=== PATIENT | female | born 1965 | race African-American/Black ===

== ENCOUNTER 2018-05-22 10:32 | Outpatient (CLI) | payer MEDICARE ==
[~2018-05-22] VITALS: Ht 160 cm; Wt 56.7 kg
[2018-05-22] MEDS ORDERED: LISI-334 PO (10:52)
[2018-05-22] MEDS ORDERED: AMLO10TA6 PO (10:52)
[2018-05-22] MEDS ORDERED: CARV25TA2 PO (10:52)
[2018-05-22 10:54] LABS: BASO % 0 % (0-3); EOS # 0.2 x10^3/uL (0.0-0.7); EOS % 3 % (0-3); HEMATOCRIT 32.3 % (36.0-47.0); HEMOGLOBIN 10.7 g/dL (12.0-15.5); LYMPH # 1.6 x10^3/uL (1.0-4.8); LYMPH % 23 % (24-48); MEAN CORPUSCULAR HEMOGLOBIN 30 pg (25-35); MEAN CORPUSCULAR HGB CONC 33 g/dL (31-37); MEAN CORPUSCULAR VOLUME 91 fL (79-100); MONO # 0.6 x10^3/uL (0.0-1.1); MONO % 9 % (0-9); NEUT # 4.4 x10^3uL (1.8-7.7); NEUT % 64 % (31-73); PLATELET COUNT 349 x10^3/uL (140-400); RED BLOOD COUNT 3.57 x10^6/uL (3.50-5.40); RED CELL DISTRIBUTION WIDTH 16.9 % (11.5-14.5); WHITE BLOOD COUNT 6.8 x10^3/uL (4.0-11.0)
[2018-05-22] MEDS ORDERED: SEVE800T9 PO (10:56)
[2018-05-22] MEDS ORDERED: CHOL10003 PO (10:56)
[2018-05-22] MEDS ORDERED: HYDR-2868 PO (10:56)
[2018-05-22] MEDS ORDERED: ATOR40TA59 PO (11:00)
[2018-05-22 11:07] LABS: PROTHROMBIN TIME PATIENT 13.8 SEC (11.7-14.0)
[2018-05-22 11:08] VITALS: BP 142/80
[2018-05-22] MEDS ORDERED: ALTEPLASE 2 MG VIAL INT CAT ONE (11:15)
[2018-05-22] MEDS ORDERED: fentaNYL PF VIAL 100 MCG/2 ML VIAL ONE ×2 (11:53→13:28)
[2018-05-22] MEDS ORDERED: MIDAZOLAM HCL/PF 2 MG/2 ML VIAL. ONE ×2 (11:53→13:28)
[2018-05-22] MEDS ORDERED: HEPARIN for IV BOLUS 10,000 UNIT/10 ML VIAL. ONE (11:54)
[2018-05-22] MEDS ORDERED: IODIXANOL 320 MG/ML 100 ML VIAL. ONE (11:54)
[2018-05-22] MEDS ORDERED: LIDOCAINE WITH 8.4% SOD BICARB 3 ML DISP.SYRIN. ONE (11:55)
[2018-05-22] MEDS ORDERED: IODIXANOL 320 MG/ML 50ML VIAL. ONE ×2 (11:55→14:15)
[2018-05-22] MEDS ORDERED: fentaNYL PF VIAL 100 MCG/2 ML VIAL IV ONE (13:00)
[2018-05-22] MEDS ORDERED: HEPARIN for IV BOLUS 10,000 UNIT/10 ML VIAL. IV ONE (13:00)
[2018-05-22] MEDS ORDERED: IODIXANOL 320 MG/ML 100 ML VIAL. IART ONE (13:00)
[2018-05-22] MEDS ORDERED: MIDAZOLAM HCL/PF 2 MG/2 ML VIAL. IV ONE (13:00)
[2018-05-22] MEDS ORDERED: LIDOCAINE WITH 8.4% SOD BICARB 3 ML DISP.SYRIN. IJ ONE (13:00)
[2018-05-22] MEDS ORDERED: CONTRAST GIVEN. MC PRN (13:15)
[2018-05-22 14:54] VITALS: BP 133/78
[2018-05-22 15:02] VITALS: BP 118/73
[2018-05-22 15:15] VITALS: BP 127/72
[2018-05-22] MEDS ORDERED: CLOPIDOGREL BISULFATE 75 MG TABLET PO ONE (15:15)
[2018-05-22] MEDS ORDERED: CLOPIDOGREL BISULFATE 75 MG TABLET ONE (15:23)
[2018-05-22 15:30] VITALS: BP 147/78
[2018-05-22 15:45] VITALS: BP 131/74
--- NOTE | 2018-05-25 11:47 | RAD ---
05/22/2018 1. Right upper extremity AV fistulogram 2. Right upper extremity AV graft pharmacomechanical thrombolysis 3. Placement of self expanding stent, right upper extremity AV graft secondary to bleeding, possible prior puncture site 4. Placement of extending stent secondary to anastomotic and proximal outflow vein stenosis Discussion: The risks and benefits of the procedure were discussed the patient. Informed consent was obtained. A timeout procedure was performed. Right upper extremity was prepped and draped using sterile barrier technique. Ultrasound evaluation confirms complete thrombosis of a recently placed right upper extremity AV graft. Graft was accessed directed towards venous outflow using direct ultrasound guidance and micropuncture technique. Reference ultrasound images were saved. Central venogram was obtained demonstrating patency of the major central veins from the axillary vein centrally. What appears to be high-grade stenosis at the venous anastomosis is seen. Graft was accessed directed towards the arterial limb in an identical fashion. 2 lysis catheters were placed and 6 mg of TPA was administered throughout the graft. The patient was heparinized. Following a 20 minute intubation balloon maceration of the clot was performed. Angioplasty of the outflow vein was performed with a 6 mm balloon. The arterial plug was with a 5 mm balloon. This reestablished flow through the graft however flow remains sluggish. Also noted was ivonne extravasation of contrast in the arterial limb of the graft which appeared to be the result of a through and through puncture site. This could not be stopped despite direct manual pressure and inflation of the balloon for several minutes proximal to the bleeding site. The bleeding site was then covered 8 mm Viabahn self-expanding stent. Bleeding resolved. Balloon maceration was performed throughout the entirety of the graft. A persistent outflow stenosis is seen. Given relatively recent anastomosis, gentle angioplasty was again performed which improved but not resolved outflow vein stenosis. A 10 mm self expanding stent was placed. Following this in-line flow seen through the graft. No significant residual stenosis was identified. She's were removed over pursestring sutures. Sterile dressings were applied. The procedures performed under conscious sedation including continuous cardiopulmonary monitoring via a dedicated sedation nurse. [id number] sedation time 2 hours Fluoroscopy time: 26.5 Minutes Dose area product:: 29 Gycm2 Impression: 1. High-grade venous anastomotic and moderate outflow vein stenosis treated with balloon angioplasty and placement of a self expanding bare metal stent 2. Successful pharmacomechanical thrombolysis 3. Following lysis there was active bleeding in the arterial limb of the graft which appears to be the result of prior through and through puncture. This was ultimately treated by placement of a covered stent 4. At the end of the procedure, adequate in-line flow through the graft appears to be present.
[2018-05-25] MEDS ORDERED: CLOP75TA PO (17:36)
== END 2018-05-22 16:09 | disposition home or self-care (01) ==
LOC: INTRAD 10:32
PROVIDERS: ATTEND Internal Medicine Nephrology
DX: T82.868A Thrombosis due to vascular prosthetic devices, implants and grafts, initial encounter (principal); Z88.0 Allergy status to penicillin; I12.0 Hypertensive chronic kidney disease with stage 5 chronic kidney disease or end stage renal disease; N18.6 End stage renal disease; Z99.2 Dependence on renal dialysis; F17.210 Nicotine dependence, cigarettes, uncomplicated; Z98.890 Other specified postprocedural states; Y83.2 Surgical operation with anastomosis, bypass or graft as the cause of abnormal reaction of the patient, or of later complication, without mention of misadventure at the time of the procedure; Y92.89 Other specified places as the place of occurrence of the external cause; Z79.899 Other long term (current) drug therapy
CPT/HCPCS: 36906; 99152; 99153; C1725; C1757; C1769; C1892; C1894; J1644; J2250; J2997; J3010; 36415; 76937; 85025; 85610; 85730

== ENCOUNTER 2021-08-17 14:07 | Emergency (ER) | payer MEDICARE ==
[~2021-08-17] VITALS: Ht 160 cm; Wt 44.6 kg
[~2021-08-17 14:07] MED LIST: AMLO-187 PO; AMLO10TA4 PO; ATOR40TA59 PO; CARV12.5 PO; CARV25TA2 PO; CHOL10003 PO; CLOP75TA PO; HYDR-2868 PO; LISI20TA18 PO; OXYC1TAB15 PO; SEVE800T9 PO
[2021-08-17] MEDS ORDERED: ACETAMINOPHEN 500 MG TABLET PO ONE (15:30)
--- NOTE | 2021-08-17 15:45 | PHYS DOC ---
Past Medical History Past Medical History: Hypertension Additional Past Medical Histor: CHRONIC KIDNEY DISEASE Past Surgical History: Other Additional Past Surgical Histo: R ARM FISTULA Smoking Status: Current Every Day Smoker Alcohol Use: Occasionally Drug Use: None Adult General Chief Complaint Chief Complaint: DIALYSIS PROBLEM HPI HPI The patient is a 56-year-old female with a history of end-stage renal disease on hemodialysis MWF presents for evaluation of a dialysis fistula problem. She completed dialysis and the staff at the dialysis center deaccessed her fistula and she then had bleeding from the site which they were unable to stop. EMS were called. Bleeding was controlled with direct pressure without any difficulty and upon arrival to the emergency department patient is not bleeding from the site when her dressing is taken down and the site is inspected. She denies complaints. Review of Systems Review of Systems A 12 point review of systems was completed and was negative except where noted in HPI above. Current Medications Current Medications Current Medications Medications (Trade) Dose Ordered Sig/Lesli Start Time Stop Time Status Last Admin Dose Admin Acetaminophen (Tylenol) 1,000 mg 1X ONCE 08/17/21 15:30 08/17/21 15:31 DC 08/17/21 15:48 1,000 MG Allergies Allergies Allergies Coded Allergies Type Severity Reaction Last Updated Verified Penicillins Allergy Intermediate 05/25/18 Yes Physical Exam Physical Exam 56-year-old female appearing chronically ill but nontoxic and in no acute distress. Head is normocephalic and atraumatic. Neck is supple and nontender. Oropharynx is moist. Lungs are clear to auscultation at all stations. There is a normal S1 and S2 without rubs or gallops and capillary refill is appropriate, less than 2 seconds globally. Abdomen is soft, nontender and nondistended. Skin is warm and dry without cyanosis, clubbing or edema. Psychiatrically, the patient demonstrates appropriate mood and affect and is alert. Evaluation of the extremities reveals BUEs and BLEs neurovascularly intact distally with sensation intact light touch in all nerve distributions, radial, DP and PT pulses 2+ and equal bilaterally, capillary refill less than 2 seconds, hands and feet warm and well-perfused. Chronic contractures noted to right arm and right leg. Dialysis fistula site present to the left upper extremity with a palpable thrill and no active bleeding seen. Current Patient Data Vital Signs Vital Signs Date Time Temp Pulse Resp B/P (MAP) Pulse Ox O2 Delivery O2 Flow Rate FiO2 08/17/21 15:44 66 20 158/74 (102) 96 Room Air 08/17/21 14:10 97.6 97.6 EKG EKG [] Radiology/Procedures Radiology/Procedures [] Course & Med Decision Making Course & Med Decision Making 56-year-old female here for persistent bleeding from her dialysis fistula site after it was deaccessed at the completion of dialysis. Bleeding resolved with direct pressure either before or during transport. 1615: Patient has been observed for multiple hours here in the emergency department without any recurrence of her presenting bleeding. Received some Tylenol due to a headache which she states is typical for her after her dialysis sessions. Headache resolved. She feels back to baseline and ready to go home. Will discharge home. Patient is to follow-up with primary care and with her parts sales counterperson as scheduled. She understands that if she feels worse instead of better, has recurrent symptoms or any other new symptoms of concern that she should return to the emergency department immediately for reevaluation. All questions are answered. Dragon Disclaimer Dragon Disclaimer This electronic medical record was generated, in whole or in part, using a voice recognition dictation system. Departure Departure Impression: Primary Impression: Hemorrhage of surgically-created arteriovenous fistula Disposition: 01 HOME / SELF CARE / HOMELESS Condition: IMPROVED Patient Instructions: Arteriovenous (AV) Access for Hemodialysis Additional Instructions: Follow-up very closely with your primary care doctor in the office in the next 1 to 2 days for a reevaluation of your symptoms and a discussion of next best steps in care. Follow-up very closely with your parts sales counterperson as scheduled as well and do not miss any dialysis sessions. Return to the emergency department right away for worsening symptoms of any kind or with any other new symptoms of concern. Problem Qualifiers Primary Impression: Hemorrhage of surgically-created arteriovenous fistula Encounter type: initial encounter Qualified Codes: T82.838A - Hemorrhage due to vascular prosthetic devices, implants and grafts, initial encounter DELMA RASHEED MD Aug 17, 2021 15:45
[2021-08-17 16:44] VITALS: BP 170/77
== END 2021-08-17 16:50 | disposition home or self-care (01) ==
LOC: ER 14:07
DX: T82.838A Hemorrhage due to vascular prosthetic devices, implants and grafts, initial encounter (principal); I12.0 Hypertensive chronic kidney disease with stage 5 chronic kidney disease or end stage renal disease; N18.6 End stage renal disease; Z99.2 Dependence on renal dialysis; F17.200 Nicotine dependence, unspecified, uncomplicated; Z88.0 Allergy status to penicillin; Y82.8 Other medical devices associated with adverse incidents; Y92.89 Other specified places as the place of occurrence of the external cause
CPT/HCPCS: 99285-25